=== PATIENT | female | born 1975 ===

== ENCOUNTER 2024-05-19 08:55 | Emergency (ER) | payer BC, SELFPAY ==
[2024-05-19 08:58] VITALS: BP 124/60
[2024-05-19 09:38] LABS: % Basophils 0.5 % (0-2); % Eosinophils 0.8 % (0-6); % Immature Granulocytes 0.3 % (0-0.5); % Lymphocytes 28.2 % (20.5-51.1); % Neutrophils 63.2 % (42.2-75.2); Absolute Eosinophils 0.1 10^3/uL (0-0.7); Absolute Lymphocytes 1.7 10^3/uL (1.2-3.4); Absolute Monocytes 0.4 10^3/uL (0.1-0.6); Absolute Neutrophils 3.9 10^3/uL (1.4-6.5); Hematocrit 39.2 % (37.0-47.0); Hemoglobin 13.1 g/dL (12.0-16.0); Mean Corp Hgb Conc. 33.4 g/dL (33.0-37.0); Mean Corpuscular Hgb 30.5 pg (27.0-31.0); Mean Corpuscular Volume 91.4 fL (81.0-99.0); Mean Platelet Volume 9.4 fL (7.4-10.4); Nucleated Red Blood Cells % 0 %; Platelet Count 252 10^3/uL (130-400); Red Blood Cell Count 4.29 10^6/uL (4.20-5.40); Red Cell Dist. Width 12.9 % (11.5-14.5); White Blood Cell Count 6.1 10^3/uL (4.8-10.8)
[2024-05-19 09:44] LABS: HCG, Serum Qualitative Screen Negative
[2024-05-19 09:47] LABS: ALT (SGPT) 11 U/L (0-35); AST (SGOT) 21 U/L (14-36); Albumin 4.2 g/dl (3.5-5.0); Alkaline Phosphatase 38 U/L (38-126); Blood Urea Nitrogen 10 mg/dl (7-17); Calcium 9.5 mg/dl (8.4-10.2); Carbon Dioxide 29 mmol/L (22-30); Chloride 106 mmol/L (98-107); Glucose 82 mg/dl (70-99); Potassium 4.1 mmol/L (3.5-5.1); Sodium 138 mmol/L (135-145); Total Bilirubin 0.4 mg/dl (0.2-1.3); Total Protein 6.5 g/dl (6.3-8.2); eGFR > 60.00
--- NOTE | 2024-05-19 10:58 | ED.GENMED ---
History of Present Illness
General
Chief Complaint: Fatigue
Source: patient
Exam Limitations: none
Time Seen by Provider: 05/19/24 10:41
Nursing documentation reviewed up to this point in time: agreed with
History of Present Illness
History of Present Illness:
49-year-old female with no medical problems presents for generalized fatigue symptoms have been ongoing for the last week or 2. Patient says she is just not have the energy to do things and thought it was more hormonal. Then the last 3 days she
has been sleeping much more than usual, lightheaded when she stands, having joint pain, soreness, headache. She did not take her temperature and does not believe she has had a fever. She noticed a painless red emelina on her right lower abdomen with
surrounding redness and over the last 3 days she has noticed central clearing and what looks like a bull's-eye rash. [place] and [place].
She says over the weekend the past 3 days she has felt lightheaded when she stands up to the point where she is needed to lay back. She has not had any chest pain, shortness of breath, fever, neck stiffness, generalized rash, joint swelling.
Past History
Past History
ED Past Medical History: None
ED Past Surgical History: None
Social History
Tobacco: Non-smoker
Alcohol: None
Drug: None
Personal:
Review of Systems
Review of Systems
Allergies reviewed?: Yes
All Other Systems: Not applicable
Phy Exam
Physical Exam
Physical Exam:
GENERAL: Alert , in no apparent distress nontoxic and very well-appearing
EYE: pupils equal and reactive
NECK: Supple, full painless range of motion,
ENT: o/p clr, mmm.
CARDIAC: Regular rate and rhythm . No murmurs
LUNGS: Clear breath sounds bilaterally, no acute respiratory distress, no wheezes/rales/rhonchi
ABDOMEN: Soft, without focal tenderness, no r/g, no cvat, normal bowel sounds
NEUROLOGICAL: Alert and oriented, no focal neuro deficits
SKIN: Warm and dry, skin intact.
Inner right lower quadrant the patient has a flat bull's-eye rash, with a central red emelina approximately 0.25 cm surrounded by a erythematous patch approximately 4 cm x 3 cm with some central clearing consistent with erythema chronicum migrans
MUSCULOSKELETAL: No edema, well perfused. neg yuri's sign, no appreciated effusions
PSYCH: Normal and appropriate interaction.
Course
Orders/Labs/Results
Orders:
Orders
05/19/24 09:01
Test Result ONCE
05/19/24 09:05
Complete Blood Count/With Diff Urgent
Comprehensive Metabolic Panel Urgent
HCG, Serum Qualitative Screen Urgent
Lyme Progressive Urgent
05/19/24 10:54
Electrocardiogram (*1) Urgent
Reason for Study: Fatigue / Weakness
EKG- Treatment ONCE
Doxycycline [Vibramycin] 100 mg PO NOW STA
05/19/24 09:05
05/19/24 09:05
Vital Signs
Initial and Last Documented VS:
Initial Vital Signs
Temp Pulse Resp BP Pulse Ox
98.8 F 73 18 124/60 99
05/19/24 08:58 05/19/24 08:58 05/19/24 08:58 05/19/24 08:58 05/19/24 08:58
Last Documented Vital Signs
Temp Pulse Resp BP Pulse Ox
98.8 F 61 18 107/73 99
05/19/24 08:58 05/19/24 11:27 05/19/24 11:27 05/19/24 11:27 05/19/24 11:27
MDM/Problems Addressed
Differential Diagnosis Includes:
Lyme disease, mono
MDM/Problems Addressed:
49-year-old female with 2 weeks of feeling more fatigued than usual and an increase of symptoms over the last 3 days including lightheadedness with standing, joint pain, headache, intense fatigue. Patient noticed a nontender not raised rash on her
right lower quadrant that is consistent with erythema chronicum migrans. She overall appears very well, she has no other concerning findings on exam. Given the presence of the rash she has a stage I Lyme disease. Given the length of her fatigue
symptoms I will treat her for Lyme disease with 21 days of doxycycline
*Critical Care Note
Total Time (30-74mins, 75-104mins- exclusive of procedures): Not Applicable
ED Attending Note
-
Portions of this chart may have been created with voice recognition software.� Occasional wrong word or��sound alike� substitutions may have occurred due to the inherent limitations of voice recognition software.
Discharge Plan
Departure
Patient Disposition: Home (Routine Discharge)
Date of Disposition: 05/19/24
Time of Disposition: 11:10
Patient with high blood pressure during this ER visit?: No
Condition: Fair
Covid-19: Not Applicable
Discharge Problem:
Erythema chronicum migrans, Acute Lyme disease
Instructions: Lyme Disease (DC)
Prescriptions:
New
doxycycline monohydrate 100 mg capsule
100 mg PO BID Qty: 28 0RF
Activity Restrictions/Additional Instructions:
YOUR RASH APPEARS LIKE LYME DISEASE
TAKE DOXYCYCLINE 100 MG TWICEA D AY (TRY ON AN EMPTY STOMACH WITH LARGE GLASS OF WATER AND WAIT 45 MIN BEFORE EATING IN AM, AND AFTER EATING IN PM)
AVOID DIRECT SUN EXPOSURE/WEAR SUNSCREEN
TAKE FOR 14 DAYS
FOLLOW UP WITH YOUR PRIMARY DOCTOR IF YOU NEED ADDITIONAL 1 WEEK THERAPY, BUT USUALLY WITH THE RASH IS 10 DAYS, WE WILL EXTEND TO 14.
RETURN FOR ANY CONCERNS: PASSING OUT, SEVERE HEADACHE, NEUROLOGIC SYPMTOMS, JOINT SWELLING OR ANY CONCERNS
Interventions
Interventions:
*Risk Screen - Suicide Last Done: 05/19/24 08:58
*General Assessment Last Done: 05/19/24 08:58
*Neglect/Abuse Screening Last Done: 05/19/24 08:58
ED- Fall Risk Assessment Last Done: 05/19/24 11:28
*Nursing Disposition Last Done: 05/19/24 11:30
Discharge Date and Time
Discharge Date/Time: 05/19/24 11:30
Print Language: SERBIAN
[2024-05-19 11:27] VITALS: BP 107/73
[2024-05-19] MEDS: VIBRAMYCIN 100 MG PO (11:27)
[2024-05-19 14:56] LABS: Lyme Antibody Screen, EIA Negative (Negative)
== END 2024-05-19 11:30 | disposition home or self-care (01) ==
LOC: EMR 08:55
PROVIDERS: Student in an Organized Health Care Education/Training Program; EMERGENCY PHYSICIAN Emergency Medicine; FAMILY PHYSICIAN Nurse Practitioner Family
DX: A69.20 Lyme disease, unspecified (principal); A69.29 Other conditions associated with Lyme disease; R42 Dizziness and giddiness; R51.9 Headache, unspecified
CPT/HCPCS: 99283; 80053; 84703; 85025; 86618; 93005